=== PATIENT | female | born 1995 | race Caucasian/White ===

== ENCOUNTER → 2016-07-07 | Outpatient (CLI) | payer MEDICAID ==
[2016-07-07 14:15] LABS: BASO % 0.3 % (0.0-1.0); EOS # 0.2 K/mm3 (0.0-0.50); EOS % 1.7 % (0.0-3.0); LARGE UNSTAINED CELL # 0.2 K/mm3 (0.0-0.4); LYMPH # 2.1 K/mm3 (1.5-6.5); LYMPH % 22.5 % (24.0-44.0); MEAN CORPUSCULAR HEMOGLOBIN 31.8 pg (27.0-33.0); MEAN CORPUSCULAR HGB CONC 33.6 g/dl (32.0-36.5); MEAN CORPUSCULAR VOLUME 94.5 fl (80.0-96.0); MONO # 0.9 K/mm3 (0.0-0.8); MONO % 9.6 % (0.0-5.0); NEUTROPHILS # 5.9 K/mm3 (1.8-7.7); NEUTROPHILS % 63.9 % (36.0-66.0); PLATELET COUNT, AUTOMATED 246 k/mm3 (150-450); WHITE BLOOD COUNT 9.2 K/mm3 (4.0-10.0)
== END ==
LOC: M SMT 10:15
PROVIDERS: ATTEND Advanced Practice Midwife
DX: Z34.83 Encounter for supervision of other normal pregnancy, third trimester (principal)

== ENCOUNTER → 2016-07-14 | Outpatient (CLI) | payer OTHER ==
--- NOTE | 2016-07-14 10:23 | REP ---
Obstetric sonography: History: Supervision of followup anatomy. Findings: Scanning through the gravid uterus demonstrates a viable single intrauterine gestation in a cephalic lie. motion is observed and heart rate is recorded at 141 beats per minute. An anterior grade 0 placenta is seen without evidence of previa or abruption. Amniotic fluid is subjectively normal. Closed cervical length is 3.8 cm. No extrauterine abnormality is observed. There has been appropriate interval growth. No anomaly is seen. The following anatomic structures are identified and felt to be sonographically unremarkable: cranium, choroid plexus, cavum, cerebellum and posterior fossa, lungs, four chamber heart, left and right ventricular cardiac outflow tract views, diaphragm, left-sided stomach, abdominal wall cord insertion, three-vessel umbilical cord, kidneys and bladder, spine, upper and lower extremities. Biometry chart: BPD 7.0 cm = 28 weeks 1 day Head circumference 25.8 cm = 28 weeks 0 days Abdominal circumference 23.0 cm = 27 weeks 2 days Femur length 5.3 cm = 28 weeks 1 day Humeral length 5.3 cm = 30 weeks 6 days Cerebellar diameter 3.2 cm = 27 weeks 4 days HC/AC ratio normal 1.12 cephalic index normal 0.76 estimated weight 1116 grams, 2 pounds 7 ounces, 61st percentile for 27 weeks 0 days. S/D ratio in the umbilical cord artery by Doppler is normal at 2.90. RAVINDRA is normal 13.7 cm. Impression: Viable single intrauterine gestation at 27 weeks 4 days by today's composite sonographic criteria. Expected gestational age estimate based on prior sonography is 27 weeks 0 days. MARY by prior sonography October 13, 2016. Signed by Vikas Varma MD 07/14/2016 10:27 A
== END ==
LOC: M SMT 09:02
PROVIDERS: ATTEND Advanced Practice Midwife
DX: Z34.82 Encounter for supervision of other normal pregnancy, second trimester (principal)

== ENCOUNTER → 2016-09-16 | Outpatient (REF) | payer OTHER | LOC: M LAB REF 12:43 | PROVIDERS: ATTEND Advanced Practice Midwife | DX: Z34.83 Encounter for supervision of other normal pregnancy, third trimester (principal) ==

== ENCOUNTER 2016-12-01 22:14 | Emergency (ER) | payer OTHER ==
[~2016-12-01] VITALS: Ht 167.6 cm; Wt 77.1 kg
[~2016-12-01 22:14] MED LIST: ACET50TA PO; IBUP-1114 PO; PRENTAB9 PO
[2016-12-01] MEDS ORDERED: NS 500 ML IV ONE (23:45)
[2016-12-02 00:06] LABS: BASO % 0.3 % (0.0-1.0); EOS # 0.2 K/mm3 (0.0-0.50); EOS % 1.2 % (0.0-3.0); LARGE UNSTAINED CELL # 0.2 K/mm3 (0.0-0.4); LARGE UNSTAINED CELL % 1.3 % (0.0-4.0); LYMPH # 1.6 K/mm3 (1.5-6.5); LYMPH % 11.6 % (24.0-44.0); MEAN CORPUSCULAR HEMOGLOBIN 29.4 pg (27.0-33.0); MEAN CORPUSCULAR HGB CONC 32.9 g/dl (32.0-36.5); MEAN CORPUSCULAR VOLUME 89.4 fl (80.0-96.0); MONO # 0.6 K/mm3 (0.0-0.8); MONO % 4.9 % (0.0-5.0); NEUTROPHILS % 80.8 % (36.0-66.0); PLATELET COUNT, AUTOMATED 237 k/mm3 (150-450); WHITE BLOOD COUNT 12.4 K/mm3 (4.0-10.0)
[2016-12-02 00:30] LABS: ANION GAP 8 MEQ/L (8-16); BLOOD UREA NITROGEN 6 MG/DL (7-18); CALCIUM LEVEL 9.1 MG/DL (8.5-10.1); CARBON DIOXIDE LEVEL 25 MEQ/L (21-32); CHLORIDE LEVEL 104 MEQ/L (98-107); CREATININE FOR GFR 0.71 MG/DL (0.55-1.02); GLOMERULAR FILTRATION RATE > 60.0 (>60); GLUCOSE, FASTING 87 MG/DL (70-105); POTASSIUM SERUM 3.9 MEQ/L (3.5-5.1); SODIUM LEVEL 137 MEQ/L (136-145)
[2016-12-02] MEDS ORDERED: cefTRIAXone SOD 2 GM in D5W MINI-BAG PLUS 50 ML IV ONE (00:45)
[2016-12-02] MEDS ORDERED: AZITHROMYCIN INJ 500 MG, VIAL MATE ADAPTER 1 EACH in D5W 250 ML IV ONE (00:45)
--- NOTE | 2016-12-02 00:45 | REP ---
Clinical: Chest pain. Dyspnea . Comparison: None . Technique: PA and lateral. Findings: The mediastinum and cardiac silhouette are normal. The lung berry are clear and without acute consolidation, effusion, or pneumothorax. The skeletal structures are intact and normal. Impression: 1. No acute cardiopulmonary process. Signed by Rashard Hamm MD 12/02/2016 12:36 A
[2016-12-02] MEDS ORDERED: CEFD1CAP8 PO (00:51)
[2016-12-02 02:08] VITALS: BP 102/64
== END 2016-12-02 02:49 | disposition home or self-care (01) ==
LOC: M ED 12-02 00:18
DX: J02.9 Acute pharyngitis, unspecified (principal)

== ENCOUNTER → 2017-08-15 | Outpatient (CLI) | payer OTHER, SELFPAY ==
[2017-08-15 17:32] LABS: BASO % 0.3 % (0.0-1.0); EOS % 0.1 % (0.0-3.0); HEMATOCRIT 40.8 % (36.0-47.0); HEMOGLOBIN 13.4 g/dl (12.0-16.0); IMMATURE GRANULOCYTE % 0.3 % (0-3.0); LYMPH # 1.9 10^3/uL (1.5-6.5); LYMPH % 12.3 % (24.0-44.0); MEAN CORPUSCULAR HEMOGLOBIN 28.7 pg (27.0-33.0); MEAN CORPUSCULAR HGB CONC 32.8 g/dl (32.0-36.5); MEAN CORPUSCULAR VOLUME 87.4 fl (80.0-96.0); MONO # 1.2 10^3/uL (0.0-0.8); MONO % 7.7 % (0.0-5.0); NEUTROPHILS # 12.2 10^3/uL (1.8-7.7); NEUTROPHILS % 79.3 % (36.0-66.0); PLATELET COUNT, AUTOMATED 293 10^3/uL (150-450); RED BLOOD COUNT 4.67 10^6/uL (4.00-5.40); RED CELL DISTRIBUTION WIDTH 13.7 % (11.5-14.5); WHITE BLOOD COUNT 15.4 10^3/uL (4.0-10.0)
[2017-08-16 00:24] LABS: CHLAMYDIA DNA AMPLIFICATION NEGATIVE (NEGATIVE); GC DNA AMPLIFICATION NEGATIVE (NEGATIVE)
[2017-08-16 10:07] LABS: RUBELLA IgG QUALITATIVE IMMUNE (IMMUNE)
[2017-08-16 10:22] LABS: HBsAg Prenatal NEGATIVE (NEGATIVE)
[2017-08-16 10:36] LABS: HEPATITIS C VIRUS ABY INDEX 0.1 INDEX (<0.8)
[2017-08-16 10:37] LABS: HIV 1&2 SCREEN CENTAUR NEGATIVE (NEGATIVE)
== END ==
LOC: M SMT 12:09
DX: Z36.89 Encounter for other specified antenatal screening (principal); Z3A.01 Less than 8 weeks gestation of pregnancy
CPT/HCPCS: 86762

== ENCOUNTER → 2017-11-08 | Outpatient (CLI) | payer OTHER | LOC: M SMT 07:57 | DX: Z34.82 Encounter for supervision of other normal pregnancy, second trimester (principal); Z3A.19 19 weeks gestation of pregnancy | CPT/HCPCS: 76811 ==

== ENCOUNTER → 2018-01-16 | Outpatient (CLI) | payer OTHER | LOC: M RAD 16:29 | DX: Z34.83 Encounter for supervision of other normal pregnancy, third trimester (principal); Z36.89 Encounter for other specified antenatal screening; Z3A.30 30 weeks gestation of pregnancy | CPT/HCPCS: 76816 ==

== ENCOUNTER → 2018-01-18 | Outpatient (CLI) | payer OTHER ==
[2018-01-18 13:16] LABS: BASO % 0.2 % (0.0-1.0); EOS # 0.1 10^3/uL (0.0-0.50); EOS % 0.7 % (0.0-3.0); HEMATOCRIT 35.6 % (36.0-47.0); HEMOGLOBIN 11.2 g/dl (12.0-15.5); IMMATURE GRANULOCYTE % 0.9 % (0-3.0); LYMPH # 1.8 10^3/uL (1.5-6.5); LYMPH % 19.7 % (24.0-44.0); MEAN CORPUSCULAR HEMOGLOBIN 29.4 pg (27.0-33.0); MEAN CORPUSCULAR HGB CONC 31.5 g/dl (32.0-36.5); MEAN CORPUSCULAR VOLUME 93.4 fl (80.0-96.0); MONO # 1.1 10^3/uL (0.0-0.8); MONO % 11.6 % (0.0-5.0); NEUTROPHILS # 6.3 10^3/uL (1.8-7.7); NEUTROPHILS % 66.9 % (36.0-66.0); PLATELET COUNT, AUTOMATED 238 10^3/uL (150-450); RED BLOOD COUNT 3.81 10^6/uL (4.00-5.40); RED CELL DISTRIBUTION WIDTH 13.1 % (11.5-14.5); WHITE BLOOD COUNT 9.4 10^3/uL (4.0-10.0)
[2018-01-18 14:07] LABS: GLUCOSE CHALLENGE TEST 1 HOUR 110 MG/DL (LESS THAN 140)
== END ==
LOC: M SMT 09:33
DX: Z36.89 Encounter for other specified antenatal screening (principal); Z3A.00 Weeks of gestation of pregnancy not specified
CPT/HCPCS: 82950

== ENCOUNTER → 2018-03-05 | Outpatient (CLI) | payer OTHER | LOC: M RAD 09:51 | DX: N63.11 Unspecified lump in the right breast, upper outer quadrant (principal) | CPT/HCPCS: 76642 ==

== ENCOUNTER → 2018-03-09 | Outpatient (REF) | payer OTHER | LOC: M LAB REF 13:03 | DX: Z34.83 Encounter for supervision of other normal pregnancy, third trimester (principal) ==

== ENCOUNTER 2018-03-26 05:55 | Inpatient (IN) | payer OTHER ==
[2018-03-26 06:55] LABS: HEMOGLOBIN 11.3 g/dl (12.0-15.5); MEAN CORPUSCULAR HEMOGLOBIN 26.2 pg (27.0-33.0); MEAN CORPUSCULAR HGB CONC 31.4 g/dl (32.0-36.5); MEAN CORPUSCULAR VOLUME 83.5 fl (80.0-96.0); PLATELET COUNT, AUTOMATED 275 10^3/uL (150-450); RED BLOOD COUNT 4.31 10^6/uL (4.00-5.40); RED CELL DISTRIBUTION WIDTH 13.4 % (11.5-14.5); WHITE BLOOD COUNT 12.4 10^3/uL (4.0-10.0)
[2018-03-26] MEDS: PRENATAL VITAMINS CHEWABLE TABLET PO (09:00)
[2018-03-26] MEDS ORDERED: LR 1,000 ML IV (09:15)
[2018-03-26] MEDS ORDERED: FENTANYL 2MCG/ML ROPIVACAINE 0.2% IN 0.9% NACL 200ML IVBAG As Ordered (09:34)
[2018-03-26] MEDS: LACTATED RINGER'S 1000 ML IV (10:55)
[2018-03-26] MEDS: OXYTOCIN DRIP 30 UNITS in APPROPRIATE DILUENT 1 EA IV ×2 (10:56→13:08)
[2018-03-26] MEDS: LR 1,000 ML IV ×2 (10:56→11:47)
[2018-03-26] MEDS ORDERED: EPIDURAL COMMENT XX (11:30)
[2018-03-26] MEDS ORDERED: ePHEDrine SULFATE 25 MG/5 ML(5MG/ML) SYRINGE IV (11:30)
[2018-03-26] MEDS ORDERED: NALOXONE INJ 0.4 MG/1 ML VIAL (J2310) IV (11:30)
[2018-03-26] MEDS ORDERED: FENTANYL/ROPIVACAINE/NACL BAG 200 ML EPIDURAL (11:30)
[2018-03-26] MEDS ORDERED: REFRIGERATOR IV KEYS XX (11:30)
[2018-03-26] MEDS ORDERED: LACTATED RINGER'S 1000 ML IV (11:30)
[2018-03-26] MEDS ORDERED: EPIDURAL/PCA KEYS XX (11:30)
[2018-03-26] MEDS ORDERED: ONDANSETRON 4MG/2ML VIAL (J2405) IV (11:30)
[2018-03-26] MEDS ORDERED: diphenhydrAMINE INJ 50MG/ML VIAL (J1200) IV (11:30)
[2018-03-26] MEDS ORDERED: ACETAMINOPHEN 500 MG TAB PO (13:15)
[2018-03-26] MEDS ORDERED: DOCUSATE SODIUM 100 MG CAP PO (13:15)
[2018-03-26] MEDS ORDERED: METHYLERGONOVINE MALEATE 0.2 MG TAB PO (13:15)
[2018-03-26] MEDS ORDERED: DIBUCAINE 1% OINTMENT 30GM TOP (13:15)
[2018-03-26] MEDS: RHOGAM 300 MCG (1500 IU) INJ (J2790) IM (14:20)
[2018-03-26] MEDS: MEASLES,MUMPS,RUBELLA VACCINE INJ (MMR-II) (90707) SC (14:21)
[2018-03-26] MEDS: IBUPROFEN 800 MG TAB PO (20:04)
[2018-03-27] MEDS: PRENATAL VITAMINS CHEWABLE TABLET PO (09:48)
[2018-03-27] MEDS: IBUPROFEN 800 MG TAB PO ×2 (09:48→17:59)
[2018-03-27] MEDS: PSEUDOEPHEDRINE 30 MG TAB PO ×2 (11:33→17:59)
[2018-03-27] MEDS: BENZONATATE 100 MG CAP PO ×2 (11:34→21:43)
[2018-03-28] MEDS: PSEUDOEPHEDRINE 30 MG TAB PO (05:15)
[2018-03-28] MEDS: PRENATAL VITAMINS CHEWABLE TABLET PO (09:56)
[2018-03-28] MEDS: IBUPROFEN 800 MG TAB PO (09:57)
== END 2018-03-28 13:00 | disposition home or self-care (01) | DRG 807 ==
LOC: M LDO 05:55 → M LDI 06:26 → M OBS 15:42
PROVIDERS: Specialist
PROC: 10E0XZZ Delivery of Products of Conception, External Approach (ICD-10-PCS; principal; 2018-03-26)
PROC: 0HQ9XZZ Repair Perineum Skin, External Approach (ICD-10-PCS; 2018-03-26)
DX: O70.0 First degree perineal laceration during delivery (principal); Z37.0 Single live birth; Z3A.39 39 weeks gestation of pregnancy

== ENCOUNTER 2018-04-24 06:40 | Day surgery (SDC) | payer OTHER ==
[2018-04-24 07:07] LABS: CONTROL LINE UCG INT CTR LINE PRESENT; URINE PREG TEST NEGATIVE (NEGATIVE)
[2018-04-24] MEDS: LR 1,000 ML IV (07:13)
[2018-04-24] MEDS ORDERED: KETOROLAC 60 MG/2 ML VIAL (J1885) As Ordered (07:55)
[2018-04-24] MEDS ORDERED: PROPOFOL 200 MG/20 ML VIAL As Ordered (07:55)
[2018-04-24] MEDS ORDERED: LIDOCAINE 2% INJ 100 MG/5 ML SDV (FOR ANES.) As Ordered (07:55)
[2018-04-24] MEDS ORDERED: MIDAZOLAM INJ 2 MG/2 ML VIAL (J2250) As Ordered (07:55)
[2018-04-24] MEDS ORDERED: fentaNYL 100 MCG/2 ML INJECTION (J3010) As Ordered (07:55)
[2018-04-24] MEDS ORDERED: ONDANSETRON 4MG/2ML VIAL (J2405) As Ordered (07:55)
[2018-04-24] MEDS: LIDOCAINE 1% SDV INJ 30 ML VIAL As Ordered (08:26)
[2018-04-24] MEDS: BUPIVACAINE/EPIN 0.25% 30 ML VIAL As Ordered (08:26)
== END 2018-04-24 09:29 | disposition home or self-care (01) ==
LOC: M SDC 06:40
DX: N60.21 Fibroadenosis of right breast (principal)
CPT/HCPCS: 19120

== ENCOUNTER 2020-09-17 11:23 | Emergency (ER) | payer MEDICAID, OTHER ==
[~2020-09-17] VITALS: Ht 170.2 cm; Wt 87.7 kg
[~2020-09-17 11:23] MED LIST changes: -ACET50TA PO; +CEFD1CAP8 PO; +COLA100C5 PO; +MAPA500T2 PO; +SUDA30TA8 PO; +TESS100C PO
[2020-09-17 11:24] VITALS: BP 123/72
[2020-09-17] MEDS ORDERED: NAPR-837 PO (12:05)
[2020-09-17] MEDS ORDERED: CYCL-707 PO (12:05)
== END 2020-09-17 12:16 | disposition home or self-care (01) ==
LOC: M ED 11:23
DX: S29.012A Strain of muscle and tendon of back wall of thorax, initial encounter (principal); X58.XXXA Exposure to other specified factors, initial encounter; Y92.9 Unspecified place or not applicable; Y93.9 Activity, unspecified; Y99.9 Unspecified external cause status

== ENCOUNTER → 2020-10-27 | Outpatient (REF) | payer OTHER ==
[~2020-10-27] MED LIST changes: +CYCL-707 PO; +NAPR-837 PO
== END ==
LOC: M PLALAB 12:42
PROVIDERS: ATTEND Obstetrics & Gynecology
DX: Z12.4 Encounter for screening for malignant neoplasm of cervix (principal)

== ENCOUNTER → 2021-12-30 | Outpatient (REF) | payer BC ==
[~2021-12-30] MED LIST changes: -CEFD1CAP8 PO; +CEFD300C41 PO
== END ==
LOC: M PLALAB 10:36
PROVIDERS: ATTEND Advanced Practice Midwife
DX: Z53.9 Procedure and treatment not carried out, unspecified reason (principal); Z34.82 Encounter for supervision of other normal pregnancy, second trimester

== ENCOUNTER → 2021-12-30 | Outpatient (REF) | payer BC | LOC: M SFHCWAGY 16:53 → MERGE 16:53 → M SFHCWAGY 12-31 16:52 | PROVIDERS: ATTEND Advanced Practice Midwife | DX: Z34.82 Encounter for supervision of other normal pregnancy, second trimester (principal) ==

== ENCOUNTER → 2022-01-26 | Outpatient (CLI) | payer BC | LOC: M WHC 14:24 → MERGE 15:00 | PROVIDERS: ATTEND Advanced Practice Midwife | DX: O32.1XX0 Maternal care for breech presentation, not applicable or unspecified (principal); Z36.89 Encounter for other specified antenatal screening; Z3A.20 20 weeks gestation of pregnancy ==

== ENCOUNTER 2022-03-14 16:42 | Emergency (ER) | payer BC ==
[~2022-03-14] VITALS: Ht 167.6 cm; Wt 92.3 kg
[2022-03-14 19:53] LABS: BASO % 0.4 % (0.0-1.0); EOS # 0.1 10^3/uL (0.0-0.5); EOS % 0.6 % (0.0-3.0); HEMATOCRIT 35.6 % (36.0-47.0); HEMOGLOBIN 11.4 g/dl (12.0-15.5); LYMPH # 2.4 10^3/uL (1.5-5.0); LYMPH % 28.4 % (24.0-44.0); MEAN CORPUSCULAR HEMOGLOBIN 28.9 pg (27.0-33.0); MEAN CORPUSCULAR VOLUME 90.4 fl (80.0-96.0); MONO # 0.9 10^3/uL (0.0-0.8); MONO % 10.9 % (2.0-8.0); NEUTROPHILS % 58.8 % (36.0-66.0); PLATELET COUNT, AUTOMATED 217 10^3/uL (150-450); RED BLOOD COUNT 3.94 10^6/uL (4.00-5.40); WHITE BLOOD COUNT 8.4 10^3/uL (4.0-10.0)
[2022-03-14 20:11] LABS: ERYTHROCYTE SEDIMENTATION RATE 52 mm/hr (0-20)
[2022-03-14 20:55] LABS: BLOOD UREA NITROGEN 6 MG/DL (7-18); C REACTIVE PROTEIN QUANTITATIV 0.54 MG/DL (0.00-0.30); CALCIUM LEVEL 8.5 MG/DL (8.5-10.1); CARBON DIOXIDE LEVEL 25 MEQ/L (21-32); CHLORIDE LEVEL 105 MEQ/L (98-107); CREATININE FOR GFR 0.39 MG/DL (0.55-1.30); GLOMERULAR FILTRATION RATE > 60.0 (>60); GLUCOSE, FASTING 70 MG/DL (70-100); POTASSIUM SERUM 4.8 MEQ/L (3.5-5.1); SODIUM LEVEL 136 MEQ/L (136-145)
[2022-03-14 21:22] LABS: THYROID STIMULATING HORMONE 0.959 uIU/ML (0.358-3.740)
[2022-03-14 22:56] VITALS: BP 117/66
== END 2022-03-14 23:01 | disposition home or self-care (01) ==
LOC: M ED 16:42
DX: S10.15XA Superficial foreign body of throat, initial encounter (principal)

== ENCOUNTER → 2022-03-24 | Outpatient (CLI) | payer BC ==
[2022-03-24 15:55] LABS: HEMATOCRIT 35.7 % (36.0-47.0); HEMOGLOBIN 11.2 g/dl (12.0-15.5); MEAN CORPUSCULAR HEMOGLOBIN 28.8 pg (27.0-33.0); MEAN CORPUSCULAR HGB CONC 31.4 g/dl (32.0-36.5); MEAN CORPUSCULAR VOLUME 91.8 fl (80.0-96.0); PLATELET COUNT, AUTOMATED 338 10^3/uL (150-450); RED BLOOD COUNT 3.89 10^6/uL (4.00-5.40); WHITE BLOOD COUNT 10.5 10^3/uL (4.0-10.0)
[2022-03-24 17:49] LABS: GC DNA AMPLIFICATION NEGATIVE (NEGATIVE)
== END ==
LOC: M PLALAB 11:54
PROVIDERS: ATTEND Advanced Practice Midwife
DX: Z34.83 Encounter for supervision of other normal pregnancy, third trimester (principal)

== ENCOUNTER → 2022-05-18 | Outpatient (REF) | payer BC | LOC: M PLALAB 09:58 | PROVIDERS: ATTEND Advanced Practice Midwife | DX: Z36.89 Encounter for other specified antenatal screening (principal); Z3A.00 Weeks of gestation of pregnancy not specified ==

== ENCOUNTER → 2022-05-26 | Outpatient (CLI) | payer BC | LOC: M WHC 13:48 | PROVIDERS: ATTEND Advanced Practice Midwife | DX: O26.843 Uterine size-date discrepancy, third trimester (principal); Z3A.37 37 weeks gestation of pregnancy ==

== ENCOUNTER 2022-06-02 01:35 | Outpatient (CLI) | payer BC ==
[~2022-06-02] VITALS: Ht 167.6 cm; Wt 97.7 kg
[2022-06-02] MEDS ORDERED: PRENTAB9 PO (01:47)
[2022-06-02] MEDS ORDERED: HOME MED LIST COMPLETE! XX SCH (01:50)
[2022-06-02 01:54] VITALS: BP 113/81
[2022-06-02] MEDS ORDERED: OXYTOCIN DRIP 30 UNITS in IV 1 EA IV PRN ×4 (02:30)
[2022-06-02] MEDS ORDERED: METHYLERGONOVINE MALEATE 0.2 MG/ML VIAL (J2210) IM PRN (02:30)
[2022-06-02] MEDS ORDERED: CARBOPROST TROMETHAMINE 250 MCG/ML AMP IM PRN (02:30)
[2022-06-02] MEDS ORDERED: LIDOCAINE 1% MDV 20ML VIAL INFIL PRN (02:30)
[2022-06-02] MEDS ORDERED: OXYTOCIN INJ 10UNITS/ML 1ML VIAL IM PRN (02:30)
[2022-06-02] MEDS ORDERED: TRANEXAMIC ACID INJection 1,000 MG in NS 100 ML IV PRN (02:30)
[2022-06-02] MEDS ORDERED: miSOPROStol 50MCG 1/2 TABLET PO ONE (02:30)
[2022-06-02 04:01] VITALS: BP 116/78
[2022-06-02] MEDS ORDERED: BUTORPHANOL 2 MG/ML 1ML VIAL IV ONE (04:05)
[2022-06-02] MEDS ORDERED: PROMETHAZINE 25MG/ML 1ML VIAL IV ONE (04:05)
[2022-06-02 04:28] LABS: HEMATOCRIT 31.7 % (36.0-47.0); HEMOGLOBIN 9.8 g/dl (12.0-15.5); MEAN CORPUSCULAR HEMOGLOBIN 25.2 pg (27.0-33.0); MEAN CORPUSCULAR HGB CONC 30.9 g/dl (32.0-36.5); MEAN CORPUSCULAR VOLUME 81.5 fl (80.0-96.0); PLATELET COUNT, AUTOMATED 262 10^3/uL (150-450); RED BLOOD COUNT 3.89 10^6/uL (4.00-5.40); WHITE BLOOD COUNT 12.5 10^3/uL (4.0-10.0)
[2022-06-02] MEDS ORDERED: PEN G POT 3,000,000 UNIT/50 ML 3,000,000 UNIT in IV 1 EA IV SCH (06:30)
[2022-06-02 06:49] VITALS: BP 99/62
[2022-06-02 07:55] VITALS: BP 118/68
[2022-06-02 09:47] VITALS: BP 115/72
== END 2022-06-02 10:00 | disposition home or self-care (01) ==
LOC: M LDO 01:35
PROVIDERS: ATTEND Advanced Practice Midwife
DX: O47.03 False labor before 37 completed weeks of gestation, third trimester (principal); Z3A.38 38 weeks gestation of pregnancy
CPT/HCPCS: 36415; 59025; 85027; 86780; 86850; 86900; 86901; 87635; G0378; G0463; J0595; J2550